=== PATIENT | male | born 1955 | race Caucasian/White ===

== ENCOUNTER 2024-10-19 06:37 | Day surgery (SDC) | payer OTHER ==
[~2024-10-19] VITALS: Ht 177.8 cm; Wt 95.5 kg
[~2024-10-19 06:37] MED LIST: LISI-1024 PO; METF-1211 PO; OMEP20CA12 PO; ROSU20TA98 PO; SODIUM CHLORIDE 0.9% 1,000 ML ONE
[2024-10-19] MEDS ORDERED: BENZOCAINE 20% 50 MCG/SPRAY 57 GM TP ONE (06:38)
[2024-10-19] MEDS ORDERED: LIDOCAINE 4% 50 ML SOLUTION TP ONE (06:38)
[2024-10-19] MEDS ORDERED: LIDOCAINE 2% 11 ML JELLY TP ONE (06:38)
[2024-10-19] MEDS ORDERED: ALBUTEROL SULFATE 2.5 MG/0.5 ML NEB SOLUTION NEB ONE (06:38)
[2024-10-19 08:25] LABS: GLUCOMETER DEV NAME(LOC) SDS.; GLUCOSE,POINT OF CARE 116 MG/DL (70-110)
[2024-10-19] MEDS: SODIUM CHLORIDE 0.9% 1,000 ML IV ONE (08:49)
[2024-10-19] MEDS ORDERED: FentaNYL CITRATE PF 100 MCG/2 ML VIAL ONE (09:00)
[2024-10-19] MEDS ORDERED: MIDAZOLAM HCL 2 MG/2 ML VIAL ONE (09:01)
[2024-10-19] MEDS ORDERED: MethylPREDNISolone SOD SUCC 125 MG/2 ML VIAL ONE (09:03)
[2024-10-19 09:35] VITALS: PULSE 58; RESP 16; O2SAT 99
[2024-10-19] MEDS: MethylPREDNISolone SOD SUCC 125 MG/2 ML VIAL IVP ONE (10:09)
== END 2024-10-19 14:25 | disposition left against medical advice (07) ==
LOC: SURGERY 06:37
PROVIDERS: ATTEND Internal Medicine Critical Care Medicine
DX: R05.3 Chronic cough (principal); J38.4 Edema of larynx; B37.0 Candidal stomatitis; J37.0 Chronic laryngitis; I10 Essential (primary) hypertension; E78.00 Pure hypercholesterolemia, unspecified; K21.9 Gastro-esophageal reflux disease without esophagitis; Z79.899 Other long term (current) drug therapy; Z87.891 Personal history of nicotine dependence
CPT/HCPCS: 31623; 82962; 87206; 87101; 87220; 87070; 88108; 31624; 94640; 71045; 87015; J3010; J2250; J2919; J7030; J7613; Z7610